=== PATIENT | male | born 1995 | race American Indian/Alaskan Native ===

== ENCOUNTER 2016-09-26 12:57 | Emergency (ER) | payer SELFPAY ==
[2016-09-26 13:07] VITALS: BP 139/93
--- NOTE | 2016-09-26 13:30 | Emergency Department Report ---
Entered by CONNIE BURCH, acting as scribe for ANAID SERNA PA. Chief Complaint: Extremity Injury, Lower Stated Complaint: RT FOOT/FINGER PAIN Time Seen by Provider: 09/26/16 13:10 - HPI History of Present Illness: Patient presents to the ED c/o left foot/ankle pain secondary to an injury that occurred this afternoon. Pt states that he was at work and subsequently dropped a heavy object on his left foot/ankle. Reports 4th digit on right hand pain. - ROS Review of Systems: All system are negative unless stated in HPI above. - Exam Vital Signs: Vital Signs 09/26/16 13:03 Temperature 98.5 F Pulse Rate 90 Respiratory 18 Rate Blood Pressure 139/93 O2 Sat by Pulse 100 Oximetry Physical Exam: General: well nourished, well developed, nontoxic in appearance, in no acute distress Extremities: Pulses 2+ in extremities. 4th digit on right hand TTP with mild swelling. Left outer ankle/foot TTP with no swelling present. No club cyanosis. MSE screening note: Focused history and physical exam performed. Due to findings the following was ordered: ED Medical Decision Making - Medical Decision Making Medical decision making: Patient seen by provider in triage area. Appropriate protocol activated and patient to main ED to be seen by provider ED Disposition for MSE Condition: Stable This documentation as recorded by the scribe,CONNIE BURCH,accurately reflects the service I personally performed and the decisions made by ,ANAID SERNA PA.
--- NOTE | 2016-09-26 13:53 | XRay Report ---
RIGHT HAND RADIOGRAPHS INDICATION: Pain and swelling from injury. Evaluate for fracture. COMPARISON: None similar. FINDINGS: AP, lateral and oblique right hand radiographs demonstrate normal bones, joints and soft tissues. CONCLUSION: No acute radiographic abnormality. Thank you for the opportunity to participate in this patient's care.
--- NOTE | 2016-09-26 13:53 | XRay Report ---
LEFT ANKLE RADIOGRAPHS INDICATION: Injury, pain and swelling. Evaluate for fracture. COMPARISON: None similar at this institution. FINDINGS: AP, lateral and oblique left ankle radiographs demonstrate intact mortise, malleoli and talar dome contour. Normal soft tissues. CONCLUSION: No acute radiographic abnormality. Thank you for the opportunity to participate in this patient's care.
--- NOTE | 2016-09-26 13:55 | XRay Report ---
LEFT FOOT, 3 views: History: Left foot pain and swelling. The bony architecture is intact. Bony alignment is normal. No soft tissue abnormalities are seen. The joint spaces appear preserved. IMPRESSION: Normal left foot.
--- NOTE | 2016-09-26 16:15 | Emergency Department Report ---
ED Extremity Problem HPI - General Chief complaint: Extremity Injury, Lower Stated complaint: RT FOOT/FINGER PAIN Time Seen by Provider: 09/26/16 13:09 Source: patient Mode of arrival: Ambulatory Limitations: No Limitations - History of Present Illness Initial comments: This is a 21-year-old male that presents with left foot and ankle pain secondary to an injury that occurred his afternoon. Patient stated it has been moving dresser which landed on his left foot and ankle. Patient also stated later that afternoon was helping friend with a rotor which fell on the same area. Patient's symptoms include pain that is rated 6 out of 10, and swelling to extremity. Patient denies any numbness or tingling sensation. Patient also reports fourth digit pain status post closing door on it. Patient denies any new numbness or tingling sensation as well. Patient did not seem toxic or ill appearance. Patient denies any deformity or trouble moving or bending finger or toes. MD Complaint: extremity pain (left foot and ankle, right fourth digit.) -: Gradual, days(s) (1) Location: left (foot/ankle), right (fourth digit) History of Same: No Radiation: none Severity scale (0 -10): 6 Quality: aching Consistency: constant Associated Symptoms: denies other symptoms. denies: chest pain, shortness of breath, fever, myalgias, arthralgias, rash - Related Data Previous Rx's Medication Instructions Recorded Last Taken Type Naproxen [Naprosyn TAB] 500 mg PO BID 5 Days 09/26/16 Unknown Rx Allergies Allergy/AdvReac Type Severity Reaction Status Date / Time No Known Allergies Allergy Unverified 09/26/16 13:07 ED Review of Systems ROS: Stated complaint: RT FOOT/FINGER PAIN Other details as noted in HPI Constitutional: denies: chills, fever Eyes: denies: eye pain, eye discharge, vision change ENT: denies: ear pain, throat pain Respiratory: denies: cough, shortness of breath, wheezing Cardiovascular: denies: chest pain, palpitations Endocrine: no symptoms reported Gastrointestinal: denies: abdominal pain, nausea, diarrhea Genitourinary: denies: urgency, dysuria Musculoskeletal: denies: back pain, joint swelling, arthralgia Skin: denies: rash, lesions Neurological: denies: headache, weakness, paresthesias Psychiatric: denies: anxiety, depression Hematological/Lymphatic: denies: easy bleeding, easy bruising ED Past Medical Hx - Past Medical History Hx HIV: Yes Additional medical history: HIV - Surgical History Past Surgical History?: No - Social History Smoking Status: Current Every Day Smoker Substance Use Type: None - Medications Home Medications: Home Medications Medication Instructions Recorded Confirmed Last Taken Type Naproxen [Naprosyn TAB] 500 mg PO BID 5 Days 09/26/16 Unknown Rx ED Physical Exam - General Limitations: No Limitations General appearance: alert, in no apparent distress - Head Head exam: Present: atraumatic, normocephalic - Eye Eye exam: Present: normal appearance - ENT ENT exam: Present: mucous membranes moist - Neck Neck exam: Present: normal inspection - Respiratory Respiratory exam: Present: normal lung sounds bilaterally. Absent: respiratory distress - Cardiovascular Cardiovascular Exam: Present: regular rate, normal rhythm. Absent: systolic murmur, diastolic murmur, rubs, gallop - GI/Abdominal GI/Abdominal exam: Present: soft, normal bowel sounds - Rectal Rectal exam: Present: deferred - Extremities Exam Extremities exam: Present: normal inspection - Expanded Upper Extremity Exam Right General: Present: normal inspection Shoulder Exam: Present: normal inspection, full ROM. Absent: tenderness, swelling Upper Arm exam: Present: normal inspection, full ROM. Absent: tenderness Elbow exam: Present: normal inspection, full ROM. Absent: tenderness, swelling Forearm Wrist exam: Present: normal inspection, full ROM. Absent: tenderness, swelling Hand Wrist exam: Present: normal inspection, full ROM, tenderness (fourth digit) . Absent: swelling, laceration Neuro motor exam: Present: wrist extension intact - Expanded Lower Extremity Exam Left Hip exam: Present: normal inspection, full ROM. Absent: tenderness, swelling Upper Leg exam: Present: normal inspection, full ROM. Absent: tenderness, swelling Knee exam: Present: normal inspection, full ROM. Absent: tenderness, swelling Lower Leg exam: Present: normal inspection, full ROM. Absent: tenderness, swelling Ankle exam: Present: normal inspection, full ROM. Absent: tenderness, swelling , abrasion, laceration Foot/Toe exam: Present: normal inspection, full ROM, tenderness (anterior foot) . Absent: swelling, abrasion Neuro vascular tendon exam: Present: no vascular compromise Gait: Positive: observed and normal 1 - Tenderness - Back Exam Back exam: Present: normal inspection, full ROM. Absent: tenderness, CVA tenderness (R), CVA tenderness (L) - Neurological Exam Neurological exam: Present: alert, oriented X3 - Psychiatric Psychiatric exam: Present: normal affect, normal mood - Skin Skin exam: Present: warm, dry, intact, normal color. Absent: rash ED Course Vital Signs 09/26/16 13:03 Temperature 98.5 F Pulse Rate 90 Respiratory 18 Rate Blood Pressure 139/93 O2 Sat by Pulse 100 Oximetry ED Medical Decision Making - Medical Decision Making Ed course: [id number] male that presents with left foot and fourth digit pain 1- patient does not seem toxic or ill appearance. 2- patient received ibuprofen 600 mg by mouth. 3- x-ray results of left foot. Detected by Dr. Alonso. Normal left foot. X-ray results left ankle. Detected by Dr. Sharma. No acute radiographic and the mallet previously X-ray results of right hand. Detected by Dr. Sharma. No acute radiographic abnormality noted. 4- patient was instructed of x-ray findings. I instructed the patient to follow up with orthopedic doctor in 3-5 days. 5- I instructed patient to rest, elevate, ice, compress to affected areas 6- patient agrees to discharge plan and treatment. No further questions noted by the patient. 7- patient is discharged on naproxen 500 mg by mouth. Patient also received Sagar wrap to the left foot/ankle. Critical care attestation.: If time is entered above; I have spent that time in minutes in the direct care of this critically ill patient, excluding procedure time. ED Disposition Disposition: DISCHARGED TO HOME OR SELFCARE Is pt being admited?: No Does the pt Need Aspirin: No Condition: Stable Instructions: Ankle Exercises (GEN), RICE Therapy (ED) Additional Instructions: Follow-up with the orthopedic doctor in 3-5 days. If symptoms worsen report back to emergency room. Take medications as prescribed. Prescriptions: Naproxen [Naprosyn TAB] 500 mg PO BID 5 Days Referrals: MINGO NESBITT MD [Primary Care Provider] - 3-5 Days MELVIN BRAND MD [Staff Physician] - 3-5 Days [facility] [Outside] - 3-5 Days [facility] [Outside] - 3-5 Days Forms: Work/School Release Form(ED)
[2016-09-26] MEDS ORDERED: MOTRIN PO ONE (16:23)
== END 2016-09-26 16:37 | disposition home or self-care (01) ==
LOC: ED 12:57
DX: M79.672 Pain in left foot (principal); M79.675 Pain in left toe(s); F17.200 Nicotine dependence, unspecified, uncomplicated; W22.8XXA Striking against or struck by other objects, initial encounter; Y93.89 Activity, other specified; Y92.89 Other specified places as the place of occurrence of the external cause; Y99.8 Other external cause status